=== PATIENT | male | born 1960 | race Caucasian/White ===

== ENCOUNTER 2017-08-04 12:55 | Emergency (ER) | payer BC ==
[~2017-08-04] VITALS: Ht 185.4 cm; Wt 106.0 kg
[~2017-08-04 12:55] MED LIST: NAPR550 PO; Z.0.NO CURRENT MEDS
[2017-08-04 12:58] VITALS: BP 142/82; PULSE 84; RESP 20; TEMP 98.2; O2SAT 95
[2017-08-04] MEDS ORDERED: ZITH250T PO (13:10)
[2017-08-04] MEDS ORDERED: BENZ100 PO (13:10)
[2017-08-04] MEDS ORDERED: VENTAER INH (13:10)
--- NOTE | 2017-08-04 13:14 | PD ---
HPI Chief Complaint: Respiratory Symptoms Time Seen by Provider: 13:04 Travel History International Travel<30 days: No Contact w/Intl Traveler<30days: No Traveled to known affect area: No History of Present Illness HPI This 57-year-old male is complaining of shortness of breath. There is been coughing and has had cold symptoms for a few days. He has been using an albuterol nebulizer which usually helps him by the bed but it has not provided any sustained relief with this episode. He smoked in the past but stopped in 1977. 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 He has never been diagnosed with asthma. He has no history of heart disease. PFSH Past Medical History Hx Anticoagulant Therapy: No Cardiovascular Problems: Yes (CHOL) COPD: Yes Diabetes: No Diminished Hearing: No Respiratory: Yes (COPD) Influenza Vaccination: No ?: Not Past Surgical History Surgical History: No Previous Surgery Social History Alcohol Use: Yes (2 BEERS DAILY) Tobacco Use: No Substance Use: Yes (SMOKES MARIJUANA) Allergies-Medications (Allergen,Severity, Reaction): Coded Allergies: No Known Allergies (Verified Adverse Reaction, Unknown, 08/04/17) Reported Meds & Prescriptions Reported Meds & Active Scripts Active Reported Ventolin Hfa 18 GM Inh (Albuterol Sulfate) 90 Mcg/Act Aer 2 Puff INH Q4-6H PRN Zithromax (Azithromycin) 250 Mg Tab 250 Mg PO DIRECTED Take 2 tabs (500 mg) on day 1 then 1 tab daily x 4 days. Tessalon Perles (Benzonatate) 100 Mg Cap 200 Mg PO TID PRN Review of Systems General / Constitutional: Positive: Fever, Chills Eyes: No: Diploplia, Blurred Vision HENT: No: Headaches, Vertigo Cardiovascular: No: Chest Pain or Discomfort Respiratory: Positive: Cough, Shortness of Breath, Wheezing Gastrointestinal: No: Nausea, Vomiting Genitourinary: No: Urgency, Frequency Musculoskeletal: No: Myalgias, Arthralgias Skin: No Rash Neurologic: No: Weakness Endocrine: No: Heat Intolerance, Cold Intolerance Hematologic/Lymphatic: No: Easy Bruising Physical Exam Narrative GENERAL: Well-developed male SKIN: Focused skin assessment warm/dry. HEAD: Atraumatic. Normocephalic. EYES: Pupils equal and round. No scleral icterus. No injection or drainage. ENT: No nasal bleeding or discharge. Mucous membranes pink and moist. NECK: Trachea midline. No JVD. CARDIOVASCULAR: Regular rate and rhythm. No murmur appreciated. RESPIRATORY: There is accessory muscle use. There is bilateral wheezing GASTROINTESTINAL: Abdomen soft, non-tender, nondistended. Hepatic and splenic margins not palpable. MUSCULOSKELETAL: No obvious deformities. No clubbing. No cyanosis. No edema. NEUROLOGICAL: Awake and alert. No obvious cranial nerve deficits. Motor grossly within normal limits. Normal speech. PSYCHIATRIC: Appropriate mood and affect; insight and judgment normal. Data Data Last Documented VS Vital Signs Date Time Temp Pulse Resp B/P (MAP) Pulse Ox O2 Delivery O2 Flow Rate FiO2 08/04/17 14:15 84 22 149/83 (105) 94 Room Air 08/04/17 12:58 98.2 Orders Orders Complete Blood Count With Diff (08/04/17 13:10) Comprehensive Metabolic Panel (08/04/17 13:10) Iv Access Insert/Monitor (08/04/17 13:10) Ecg Monitoring (08/04/17 13:10) Oximetry (08/04/17 13:10) Oxygen Administration (08/04/17 13:10) Chest, Single Ap (08/04/17 13:10) Sodium Chloride 0.9% Flush (Ns Flush) (08/04/17 13:15) Methylprednisolone So Succ Inj (Solumedr (08/04/17 13:15) Albuterol-Ipratropium Neb (Duoneb Neb) (08/04/17 13:15) Ceftriaxone Inj (Rocephin Inj) (08/04/17 13:15) Labs Laboratory Tests Test 08/04/17 13:30 White Blood Count 10.5 TH/MM3 Red Blood Count 5.34 MIL/MM3 Hemoglobin 15.6 GM/DL Hematocrit 47.9 % Mean Corpuscular Volume 89.7 FL Mean Corpuscular Hemoglobin 29.3 PG Mean Corpuscular Hemoglobin Concent 32.6 % Red Cell Distribution Width 12.8 % Platelet Count 347 TH/MM3 Mean Platelet Volume 7.8 FL Neutrophils (%) (Auto) 76.4 % Lymphocytes (%) (Auto) 8.3 % Monocytes (%) (Auto) 7.2 % Eosinophils (%) (Auto) 7.7 % Basophils (%) (Auto) 0.4 % Neutrophils # (Auto) 8.0 TH/MM3 Lymphocytes # (Auto) 0.9 TH/MM3 Monocytes # (Auto) 0.8 TH/MM3 Eosinophils # (Auto) 0.8 TH/MM3 Basophils # (Auto) 0.0 TH/MM3 CBC Comment AUTO DIFF Blood Urea Nitrogen 16 MG/DL Creatinine 0.83 MG/DL Random Glucose 82 MG/DL Total Protein 7.7 GM/DL Albumin 3.6 GM/DL Calcium Level 9.2 MG/DL Alkaline Phosphatase 70 U/L Aspartate Amino Transf (AST/SGOT) 31 U/L Alanine Aminotransferase (ALT/SGPT) 33 U/L Total Bilirubin 0.5 MG/DL Sodium Level 136 MEQ/L Potassium Level 4.3 MEQ/L Chloride Level 105 MEQ/L Carbon Dioxide Level 24.0 MEQ/L Anion Gap 7 MEQ/L Estimat Glomerular Filtration Rate 95 ML/MIN MDM Medical Decision Making Medical Screen Exam Complete: Yes Emergency Medical Condition: Yes Medical Record Reviewed: Yes Differential Diagnosis Differential includes asthma, COPD exacerbation, pneumonia Narrative Course X-ray shows some parenchymal changes of the left base. Patient is currently on a course of Zithromax. He'll be given prescription for prednisone and DuoNeb Diagnosis Primary Impression: COPD exacerbation Scripts Nebulizer (Nebulizer) 1 Mis Mis EA .XX DIRECTED for Breathing Treatment, #1 0 Refills use every 4 hours if needed Prov: Arturo Marie MD 08/04/17 Ipratropium-Albuterol Neb (Duoneb) 0.5-2.5 Mg/3 Ml Neb 1 NEBULE INH Q4HR NEB for SHORTNESS OF BREATH, #60 NEBULE 0 Refills Prov: Arturo Marie MD 08/04/17 Prednisone (Prednisone) 20 Mg Tab 20 MG PO DIRECTED, #24 TAB 0 Refills Take 60 MG daily x 4 days, then 40 MG x 4 days, then 20 MG daily x 4 days. Prov: Arturo Marie MD 08/04/17 Disposition: 01 DISCHARGE HOME Condition: Stable Arturo Marie MD Aug 04, 2017 13:14
[2017-08-04] MEDS ORDERED: cefTRIAXone INJ 1,000 MG in SODIUM CHLORIDE 0.9% INJ 100 ML IV ONE (13:15)
[2017-08-04] MEDS ORDERED: SODIUM CHLORIDE 0.9% FLUSH 10 ML FLUSH IVF PRN (13:15)
[2017-08-04] MEDS ORDERED: methylPREDNISolone SOD SUCC 125 MG/2 ML VIAL IV PUSH ONE (13:15)
[2017-08-04] MEDS: RESP: ALBUTEROL 2.5 MG/IPRATROPIUM 0.5 MG NEB (SCH) INH ×2 (13:37→13:38)
[2017-08-04 13:53] LABS: BASOPHIL % 0.4 % (0.0-2.0); EOSINOPHIL # 0.8 TH/MM3 (0-0.4); EOSINOPHIL % 7.7 % (0.0-4.0); HEMATOCRIT 47.9 % (39.0-51.0); HEMOGLOBIN 15.6 GM/DL (13.0-17.0); LYMPH % 8.3 % (9.0-44.0); LYMPHOCYTE # 0.9 TH/MM3 (1.0-4.8); MEAN CELL VOLUME 89.7 FL (80.0-100.0); MEAN CORPUSCULAR HEMOGLOBIN 29.3 PG (27.0-34.0); MEAN CORPUSCULAR HGB CONC 32.6 % (32.0-36.0); MEAN PLATELET VOLUME 7.8 FL (7.0-11.0); MONO % 7.2 % (0.0-8.0); MONOCYTE # 0.8 TH/MM3 (0-0.9); NEUT % 76.4 % (16.0-70.0); PLATELET COUNT 347 TH/MM3 (150-450); RED BLOOD COUNT 5.34 MIL/MM3 (4.50-5.90); RED CELL DISTRIBUTION WIDTH 12.8 % (11.6-17.2); WHITE BLOOD COUNT 10.5 TH/MM3 (4.0-11.0)
--- NOTE | 2017-08-04 13:53 | RADRPT ---
EXAM DATE/TIME: 08/04/2017 13:32 [facility] COMPARISON: No previous studies available for comparison. INDICATIONS : Short of breath MEDICAL HISTORY : Chronic obstructive pulmonary disease. SURGICAL HISTORY : None. ENCOUNTER: Initial ACUITY: 1 day PAIN SCORE: 0/10 LOCATION: Bilateral chest FINDINGS: Minimal parenchymal changes left base. Right lung clear. The heart and pulmonary vascularity are nor mal. The portion of the bony skeleton visualized is unremarkable. CONCLUSION: Minimal parenchymal changes right base Sunil Cordero MD FACR on August 04, 2017 at 13:48 Board Certified Radiologist. This report was verified electronically.
[2017-08-04 13:55] VITALS: O2SAT 96
[2017-08-04 14:02] LABS: CHLORIDE 105 MEQ/L (98-107); SODIUM (NA) 136 MEQ/L (136-145)
[2017-08-04 14:05] LABS: CALCIUM 9.2 MG/DL (8.5-10.1)
[2017-08-04 14:06] LABS: ALBUMIN 3.6 GM/DL (3.4-5.0); BLOOD UREA NITROGEN 16 MG/DL (7-18); GLUCOSE,RANDOM 82 MG/DL (74-106)
[2017-08-04 14:09] LABS: ALT (GPT) 33 U/L (12-78); AST (GOT) 31 U/L (15-37); CREATININE 0.83 MG/DL (0.60-1.30); GLOMERULAR FILTRATION RATE 95 ML/MIN (>89)
[2017-08-04 14:10] LABS: TOTAL BILIRUBIN ADULT 0.5 MG/DL (0.2-1.0); TOTAL PROTEIN 7.7 GM/DL (6.4-8.2)
[2017-08-04 14:12] LABS: ALKALINE PHOSPHATASE 70 U/L (45-117)
[2017-08-04 14:15] VITALS: BP 149/83; PULSE 84; RESP 22; O2SAT 94
[2017-08-04] MEDS ORDERED: NEBULIZER1 MI1 (14:22)
[2017-08-04] MEDS ORDERED: PRED20 PO (14:22)
[2017-08-04] MEDS ORDERED: IPRASOL INH (14:22)
== END 2017-08-04 14:38 | disposition home or self-care (01) ==
LOC: PHED 12:55
DX: J44.1 Chronic obstructive pulmonary disease with (acute) exacerbation (principal); F12.90 Cannabis use, unspecified, uncomplicated; Z79.51 Long term (current) use of inhaled steroids; Z79.899 Other long term (current) drug therapy
CPT/HCPCS: 71045; 80053; 85025; 94640; 94664; 96374; 96375; 99284; J0696; J2930

== ENCOUNTER 2017-08-29 20:54 | Emergency (ER) | payer BC ==
[2017-08-29] MEDS: RESP: ALBUTEROL 2.5 MG/IPRATROPIUM 0.5 MG NEB (SCH) INH ×3 (21:18→21:38)
[2017-08-29] MEDS: SODIUM CHLORIDE 0.9% FLUSH 10 ML FLUSH IVF (21:23)
[2017-08-29] MEDS: methylPREDNISolone SOD SUCC 125 MG/2 ML VIAL IV PUSH (21:23)
[2017-08-29 21:34] LABS: AUTOMATED NEUTROPHIL # 4.3 TH/MM3 (1.8-7.7); BASOPHIL # 0.1 TH/MM3 (0-0.2); EOSINOPHIL # 1.2 TH/MM3 (0-0.4); EOSINOPHIL % 14.7 % (0.0-4.0); HEMATOCRIT 45.5 % (39.0-51.0); HEMO FLAGS DIFF FINAL; HEMOGLOBIN 15.1 GM/DL (13.0-17.0); LYMPHOCYTE # 1.7 TH/MM3 (1.0-4.8); MEAN CORPUSCULAR HEMOGLOBIN 29.5 PG (27.0-34.0); MEAN CORPUSCULAR HGB CONC 33.2 % (32.0-36.0); MEAN PLATELET VOLUME 7.6 FL (7.0-11.0); MONO % 9.1 % (0.0-8.0); MONOCYTE # 0.7 TH/MM3 (0-0.9); NEUT % 54.2 % (16.0-70.0); PLATELET COUNT 314 TH/MM3 (150-450); RED BLOOD COUNT 5.11 MIL/MM3 (4.50-5.90); RED CELL DISTRIBUTION WIDTH 12.4 % (11.6-17.2)
[2017-08-29 21:43] LABS: CHLORIDE 109 MEQ/L (98-107); POTASSIUM 3.8 MEQ/L (3.5-5.1); SODIUM (NA) 140 MEQ/L (136-145)
[2017-08-29 21:46] LABS: ANION GAP 8 MEQ/L (5-15); BICARBONATE 23.3 MEQ/L (21.0-32.0); BLOOD UREA NITROGEN 17 MG/DL (7-18); CALCIUM 9.3 MG/DL (8.5-10.1); GLUCOSE,RANDOM 89 MG/DL (74-106)
[2017-08-29 21:50] LABS: CREATININE 0.84 MG/DL (0.60-1.30); GLOMERULAR FILTRATION RATE 94 ML/MIN (>89)
== END 2017-08-29 23:14 | disposition home or self-care (01) ==
LOC: PHED 20:54
DX: J44.1 Chronic obstructive pulmonary disease with (acute) exacerbation (principal); M41.9 Scoliosis, unspecified; M51.34 Other intervertebral disc degeneration, thoracic region; Z87.891 Personal history of nicotine dependence; Z79.51 Long term (current) use of inhaled steroids
CPT/HCPCS: 71045; 80048; 85025; 87804; 87804-59; 93005; 94640; 94664; 96374; 99291-25